=== PATIENT | male | born 1985 | race African-American/Black ===

== ENCOUNTER 2020-08-08 23:05 | Emergency (ER) | payer SELFPAY | END 2020-08-09 00:24 | disposition home or self-care (01) | LOC: CSHERS 23:05 | DX: S83.91XA Sprain of unspecified site of right knee, initial encounter (principal); S00.83XA Contusion of other part of head, initial encounter; Y04.2XXA Assault by strike against or bumped into by another person, initial encounter | CPT/HCPCS: 70450; 72125 ==

== ENCOUNTER 2021-11-20 12:40 | Emergency (ER) | payer BC, SELFPAY ==
[2021-11-20] MEDS ORDERED: Metoclopramide HCl 10 MG/2 ML VIAL ONE (13:18)
[2021-11-20] MEDS ORDERED: diphenhydrAMINE 50 MG/ML VIAL ONE (13:19)
[2021-11-20] MEDS ORDERED: Acetaminophen 500 MG TAB ONE (13:19)
[2021-11-20] MEDS ORDERED: Ketorolac Tromethamine 30 MG/ML VIAL ONE (13:19)
[2021-11-20 14:24] LABS: SARS-CoV-2 NAA Rapid Test Not Detected (NotDetected)
== END 2021-11-20 14:28 | disposition home or self-care (01) ==
LOC: CSHERS 12:40
DX: J18.9 Pneumonia, unspecified organism (principal); R51.9 Headache, unspecified; Z20.822 Contact with and (suspected) exposure to COVID-19; B20 Human immunodeficiency virus [HIV] disease
CPT/HCPCS: 71046; 96374; 96375; J1200; J1885; J2765